=== PATIENT | female | born 1990 | race Hispanic/Latino ===

== ENCOUNTER 2017-08-09 16:14 | Outpatient (CLI) | payer BC ==
[2017-08-09 17:21] LABS: Hemoglobin 13.5 g/dL (12.0-16.0); Mean Corpuscular HGB CONC 35.1 g/dL (32.0-36.0); Mean Corpuscular Hemoglobin 30.8 pg (27.0-31.0); Mean Corpuscular Volume 87.6 fl (81.0-99.0); Mean Platelet Volume 8.6 fL (7.4-10.4); Platelet Count 224 thou/uL (130-400); RBC Distribution Width 11.7 % (11.5-14.5); White Blood Cell (WBC) Count 7.8 thou/uL (4.8-10.8)
== END 2017-08-09 16:15 | disposition home or self-care (01) ==
LOC: LABBT 16:14
PROVIDERS: ATTEND Obstetrics & Gynecology
DX: Z01.812 Encounter for preprocedural laboratory examination (principal); O03.4 Incomplete spontaneous abortion without complication
CPT/HCPCS: 85027; 86850; 86900; 86901

== ENCOUNTER 2017-08-10 10:02 | Day surgery (SDC) | payer BC ==
[2017-08-09 16:29] VITALS: BMI 30.9
--- NOTE | 2017-08-09 18:30 | HP ---
DATE OF PROCEDURE: 08/10/2017 PROCEDURE TO BE PERFORMED: Hysteroscopy with dilation and curettage. PREOPERATIVE DIAGNOSIS: Retained products of conception. HISTORY OF PRESENT ILLNESS: Ms. Amanda Vega is a G5, P3-0-1-3 who presented for a new OB vi sit on 03/29/2017 with ultrasound findings consistent with a blighted ovum. At that time, the patien t had a 4-cm gestational sac with no pole. At that time, the patient was counseled for her man agement options including observational, medical, and surgical management options with the risk and b enefits of each. At that visit, the patient appeared to be in some disbelief about the early abnorma l and requested to repeat her ultrasound in a week. The patient did not return as discusse d until April 26, 2017. When the patient returned, a repeat ultrasound was consistent with the pre vious findings and the patient desired to proceed with medical management with Cytotec. The patient did not have success with the medical management with the Cytotec and was counseled for surgical abiel gement options. The patient was counseled and desired to proceed with a dilation and curettage; grant cielo, the procedure was too costly at [place] [facility]. The patient then reports she went to [facility] in May and had a consultation with them, but did not proceed with D&C. The patient then retur dia again another time to our clinic on 06/11/2017 with a repeat ultrasound showing abnormal appearan ce of the uterine contents. The patient had a beta hCG drawn at that time, which was 58. The patien t reported she would have secondary insurance soon and the delay to treatment continued until now July 2017. I saw the patient last week on August 03 for followup with known retained products of concepti on since March. At that time, the patient had had some light spotting. Her ultrasound confirmed a gain abnormal appearance of the uterine contents. A repeat beta hCG showed hCG that had dropped to a pproximately 5. She had no uterine tenderness or foul-smelling discharge and requested to schedule d ilation and curettage with hysteroscopy at [facility]. The patient has now been scheduled and is set to have the procedure completed tomorrow, 08/10/2017. PAST MEDICAL HISTORY: Obesity. PAST SURGICAL HISTORY: Elective termination. OBSTETRICAL HISTORY: Three previous vaginal deliveries, 1 previous elective termination with D&C and current noted to be abnormal. SOCIAL HISTORY: The patient denies smoking, alcohol, or drug use. 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 She is single. ALLERGIES: She does not have any known allergies. FAMILY HISTORY: Noncontributory. MEDICATIONS: No current medications. REVIEW OF SYSTEMS: Negative except HPI. PHYSICAL EXAMINATION: VITAL SIGNS: Blood pressure 112/74, respirations 16, weight 170 pounds, BMI 32.1. GENERAL: No acute distress, alert, and oriented. LUNGS: Clear to auscultation bilaterally, nonlabored breathing. ABDOMEN: Soft, nontender. Nonpalpable. NEUROLOGIC: Grossly oriented to person, time, and place. SKIN: Grossly normal. ASSESSMENT AND PLAN: Ms. Amanda Vega is a 26-year-old with retained products of conception for a number of months with delay in care due to a combination of psychosocial factors, who is now re martir to proceed with hysteroscopy and D&C for retained products of conception. The patient has tried medical management number of months ago, which was not successful. She has been counseled on her opt ions and she desires to proceed with the procedure as listed above. She understands the risks are to include, but not limited to bleeding, infection, possible need for antibiotics, possible need for fu ture medical and/or surgical management, inability to fully diagnose and treat all conditions at the time of surgery, and inherent risk of anesthesia. The patient's questions have been answered to her satisfaction.
[~2017-08-10 10:02] MED LIST: Dexamethasone 20 MG/5 ML VIAL ONE; Ketorolac Tromethamine 30 MG/ML VIAL ONE; Lidocaine 1% PF 5 ML VIAL ONE; Ondansetron HCl/PF 4 MG/2 ML Vial ONE; PROPOFOL 200 MG/20 ML VIAL ONE; ePHEDrine/0.9% NaCl/PF SYRINGE 50 mg/10 ml ONE
[2017-08-10] MEDS ORDERED: CEFAZOLIN 1 GM VIAL ONE (10:48)
[2017-08-10] MEDS ORDERED: CEFAZOLIN/Water 2 GM/20 ML SYRINGE ONE (10:49)
[2017-08-10] MEDS ORDERED: Midazolam HCl 2 mg/2 ml Vial ONE ×2 (11:25→11:43)
[2017-08-10] MEDS ORDERED: Fentanyl 100 MCG/2 ML VIAL ONE (11:25)
--- NOTE | 2017-08-10 15:17 | OP ---
PROCEDURES PERFORMED: Hysteroscopy, cervical dilation, endometrial curettage and hysteroscopic resec tion of retained products of conception. SURGEON: Martínez Johnson D.O. GARLAND MAKER: None. COMPLICATIONS: None. ANESTHESIA: LMA. ESTIMATED BLOOD LOSS: Less than 10 mL. FINDINGS: 1. Uterus sounds to 8 cm. 2. Hysteroscopic findings with calcified tissue filling the endometrial cavity. PROCEDURE INDICATIONS: Ms. Amanda Vega has had no retained products of conception after abn ormal that was diagnosed in 03/2017. She had a delay to receiving, recommended care for [facility] for combination of psychosocial and financial reasons, but presented today for hysteroscop y, D&C of suspected retained products of conception. PROCEDURE DETAILS: The patient was brought to the OR with IV fluids running. Once she was in the OR , anesthesia was obtained and the patient was placed in low dorsal lithotomy position. The vagina wa s prepped and draped in normal fashion for hysteroscopy. The bladder was drained. Surgeons were scr ubbed in. An operative speculum was placed into the vagina with significant uterine descent with the cervix noted to be near the introitus just beyond the hymenal ring. The operative speculum was franko fitz and a weighted speculum was placed into the vagina and a single-tooth tenaculum was placed on the anterior lip of the cervix. Uterus sounded to approximately 8 cm. Cervix was serially dilated to al low for passage of the hysteroscopy. The cervix was noted to be soft and somewhat dilated with minim al dilation and needed to pass the camera. The hysteroscope was then placed through the cervix into the uterine cavity. The uterine cavity was distended with normal saline with calcified appearing tis candelaria noted to fill the majority of the endometrial cavity. The hysteroscope was able to be passed susannah und the patient's left side of the specimen with the left tubal ostia able to be visualized. The Adam clear incisor was passed through the hysteroscope, but due to the calcified texture of the tissue, I was not able to get significant reduction in the size of the lesion with this instrument. For this r travis, the instrument was removed as well as hysteroscope and the hysteroscope was reassembled with t he larger working channel for the morcellator incisor. The morcellator incisor was used to resect th e products. Again significant calcifications were noted which made it difficult to completely resect the tissue with this instrument. The hysteroscope was removed and a sharp curette was used to resec t the remaining intrauterine contents. After the curettage portion was complete, the hysteroscope wa s replaced into the uterine cavity and the uterus was distended with the products of conception, no l onger identified within the uterine cavity. There were some calcifications near the fundus on the an terior wall of the patient's right side which could not be removed with the incising device hysterosc opically or with the curettage and these were left in situ at this time. After the procedure was com pleted, all instruments were removed. The counts were correct. There was no bleeding from the tenac ulum site. The fluid deficit was approximately said 700 mL with large amount of fluid noted undernea th the drape on the floor. The patient was then cleaned, taken out of lithotomy position. She woke from anesthesia and was transferred to the recovery room in good condition.
== END 2017-08-10 15:55 | disposition home or self-care (01) ==
LOC: SDC 10:02
PROVIDERS: ATTEND Obstetrics & Gynecology
PROC: 10D18ZZ Extraction of Products of Conception, Retained, Via Natural or Artificial Opening Endoscopic (ICD-10-PCS; principal; 2017-08-10)
DX: O03.4 Incomplete spontaneous abortion without complication (principal); E66.9 Obesity, unspecified
CPT/HCPCS: 88305; J0690; J1100; J1885; J2001; J2250; J2405; J2704; J3010

== ENCOUNTER 2018-09-17 08:45 | Inpatient (IN) | payer BC, OTHER ==
[2018-09-17 09:26] VITALS: BMI 31.9
[2018-09-17] MEDS ORDERED: HYDROcodone/Acetaminophen 5/325 mg Tablet PO PRN ×2 (09:52)
[2018-09-17] MEDS ORDERED: Butorphanol Tartrate 1 MG/ML VIAL SLOW IVP PRN (09:52)
[2018-09-17] MEDS ORDERED: NS / Oxytocin 40 units/1000ml 1,000 ML IV PRN (09:52)
[2018-09-17] MEDS ORDERED: hydrALAZINE 20 MG/ML VIAL SLOW IVP PRN ×2 (09:52→09:57)
[2018-09-17] MEDS ORDERED: Ibuprofen 800 MG TAB PO PRN (09:52)
[2018-09-17] MEDS ORDERED: Promethazine HCl 25 MG/ML VIAL IM PRN ×2 (09:52→09:57)
[2018-09-17] MEDS ORDERED: Lidocaine 1% (PF) 30 ML VIAL SC PRN ×2 (09:52→09:57)
[2018-09-17] MEDS ORDERED: Ondansetron PF 4 MG/2 ML Vial IVP PRN ×2 (09:52→09:57)
[2018-09-17] MEDS ORDERED: Lactated Ringer's 1,000 ML IV SCH (10:00)
--- NOTE | 2018-09-17 10:26 | HP ---
TIME OF EVALUATION: Roughly 0950 hours, it is now 1005 hours. LOCATION: Labor and Delivery. This is a patient of Smita Lucas CNM. CHIEF COMPLAINT: Contractions. HISTORY OF PRESENT ILLNESS: This is a 27-year-old, G5, P3, AB1, at 39 weeks and 2 days with an EDC of September 22, 2018, who presents with a complaint of regular contractions every 5 to 7 minutes. Contractions began this morning and then persisted. There was no vaginal bleeding or leakage of fluid. No decrease in movement. No headaches, right upper quadrant change, or visual changes. She denies any other complications. There are also no fevers or other constitutional symptoms. REVIEW OF SYSTEMS: Complete review of systems was completed and is otherwise negative unless specified in the HPI. PAST OB HISTORY: She is a G5, P3, with 1 spontaneous loss. All deliveries were vaginal. PAST SURGERY HISTORY: Negative. PAST SURGICAL HISTORY: Negative. ALLERGIES: ALLERGIES ARE TO LATEX AND NATURAL RUBBER. SOCIAL HISTORY: Negative for alcohol, tobacco, or illicit substances. FAMILY HISTORY: Noncontributory. PHYSICAL EXAMINATION: VITAL SIGNS: Blood pressure is 133/79, she is not tachycardic and she is afebrile. Her BMI is 31.9, according to the [employer] conversion. GENERAL: She is in no acute distress. ABDOMEN: Gravid and nontender. Size appropriate. Estimated weight per the nursing staff about 6-1/2 pounds. CERVICAL: 5 cm dilation, 60% effacement, -2 station. Bag of water is intact. monitoring; her heart tones are in the 140s to 150s with moderate variability and Category I tracing. Contractions are frequent about every 5 to 6 minutes on tocodynamometer. LABORATORY DATA: Her GBS swab is negative. ASSESSMENT: This is a 39.2-week , and a multipara patient, who is in early labor approaching active phase (approaching 6 cm). GBS negative. PLAN: 1. Admit to Labor and Delivery for symptomatic pain control. 2. Await spontaneous progress. 3. Pitocin augmentation if needed. 4. No GBS prophylaxis as she is culture negative. 5. No evidence of hypertension. 6. No evidence of compromise on monitor. 7. Serina Lucas notification by Hyglos Job ID: [id number] [facility]
[2018-09-17 10:27] LABS: Hemoglobin 12.9 g/dL (12.0-16.0); Mean Corpuscular HGB CONC 35.6 g/dL (32.0-36.0); Mean Corpuscular Volume 95.5 fL (78.0-98.0); Mean Platelet Volume 9.6 fL (7.4-10.4); Platelet Count 136 thou/uL (130-400); RBC Distribution Width 12.6 % (11.5-14.5)
[2018-09-17 10:59] LABS: Syphilis Antibody Nonreactive (Nonreactive); Syphilis Antibody Index 0.03 S/CO (<1.00 Non-Reactive)
[2018-09-17 11:00] LABS: HBSAg Index 0.27 S/CO (0-0.99); Hep B Surf Ag Non-Reactive S/CO (NonReactive)
[2018-09-17 11:11] LABS: HIV (1/2) Antibody/Antigen Non-Reactive (NonReactive); HIV 1/2 INDEX 0.16 S/CO (<1.00)
[2018-09-17] MEDS ORDERED: NS w/ Oxytocin 10 units 500 ML ONE (12:28)
[2018-09-17] MEDS: Lactated Ringer's 1,000 ML IV SCH ×2 (12:33→23:32)
[2018-09-17] MEDS ORDERED: NS w/ Oxytocin 10 units 500 ML IV SCH (12:45)
[2018-09-17] MEDS ORDERED: Acetaminophen 325 MG TAB PO PRN (16:48)
[2018-09-17] MEDS ORDERED: Lidocaine 1% (PF) 30 ML VIAL ONE (17:08)
--- NOTE | 2018-09-17 17:09 | PDOC.EVN ---
Event Note - Event Note Event Note: L&D: @1700 Asked by bryant Lucas to perform AROM for IUPC As I was putting on gloves, patient spontaneously ruptured her membranes...clear. My exam: /1. I placed an IUPC without difficulty. FHTs wnl after SROM/ I notified Mo Lucas of status.
[2018-09-17] MEDS: NS / Oxytocin 40 units/1000ml 1,000 ML IV PRN ×2 (21:26→23:29)
--- NOTE | 2018-09-17 21:48 | PDOC.LDHP ---
Labor and Delivery H&P Chief complaint: contractions HPI: Here for contractions. Denies VB, LOF. Reports + FM Current gestational age (weeks): 39 Due date: 09/22/18 Dating criteria: first trimester ultrasound Grav: 5 Para: 3 Abnormal US findings: No Past Medical History: Eczema. Current medications: pre- vitamins, other (topical steriod) Previous surgical history: dilation and curettage Allergies/Adverse Reactions: Allergies Allergy/AdvReac Type Severity Reaction Status Date / Time Latex, Natural Rubber Allergy Rash Verified 09/17/18 09:29 - Physical Exam Vital signs reviewed and normal: yes General: breathing through contractions Heart: RRR Lungs: nonlabored breathing Abdomen: gravid FHT: category 1 - Vaginal Exam cm dilated: 4 Effacement: 75% Station: -2 - OB Labs Blood type: O RH: positive Antibody Screen: negative HIV: negative RPR: negative HEPSAg: negative 1 hour GCT: negative GBS: negative Urine drug screen: negative Rubella: immune - Assessment L&D Assessment: term patient in labor - Plan Plan: admit to L&D
--- NOTE | 2018-09-17 21:49 | PDOC.OPDEL ---
OB Operative/Delivery Note Delivery Dr/Surgeon: Liz Lucas Pre-Delivery Diagnosis: active labor Procedure/Post Delivery Dx: spontaneous vaginal delivery Weeks gestation: 39 Anesthesia: epidural - Findings A Sex: female Weight: 8 lb 1 oz - 1 min: 8 - 5 min: 9 - Additional Findings/Plan Repaired Obstetrical Laceration: 1st degree Estimated blood loss: 32 ml QBL Compilations/Other Findings: Edematous anterior cervix Grade [address] Stapleton to bedside to confirm findings. Post delivery plan: routine recovery
[2018-09-18] MEDS ORDERED: Benzocaine-Menthol 82.5 ML CAN TOP PRN (00:15)
[2018-09-18] MEDS ORDERED: Methylergonovine 0.2 MG/ML VIAL IM PRN (00:15)
[2018-09-18] MEDS ORDERED: Bisacodyl 10 MG SUPP PR PRN (00:15)
[2018-09-18] MEDS ORDERED: Milk Of Magnesia 30 ML UDCUP PO PRN (00:15)
[2018-09-18] MEDS ORDERED: NS / Oxytocin 40 units/1000ml 1,000 ML IV SCH (00:15)
[2018-09-18] MEDS ORDERED: HYDROcodone/Acetaminophen 5/325 mg Tablet PO PRN (00:15)
[2018-09-18] MEDS ORDERED: diphenhydrAMINE 25 MG CAP PO PRN (00:15)
[2018-09-18] MEDS ORDERED: hydrALAZINE 20 MG/ML VIAL SLOW IVP PRN (00:15)
[2018-09-18] MEDS: Ibuprofen 800 MG TAB PO SCH ×3 (05:16→21:53)
--- NOTE | 2018-09-18 06:54 | PDOC.PP ---
Post Progress Note Post Day #: 1 Subjective: doing well, delivered at 2100 last PM...will be PPD1 this pm late PO intake tolerated: yes Flatus: yes Ambulation: yes Vital Signs (12 hours) Temp Pulse Resp BP Pulse Ox 09/18/18 05:00 98.5 F 69 20 106/58 L 09/18/18 03:00 98.5 F 65 18 112/59 L 09/18/18 02:00 98.4 F 81 18 111/55 L 09/18/18 00:20 98.2 F 59 L 18 121/65 98 Weight Weight 169 lb - Physical Examination General: NAD Cardiovascular: no m/r/g Respiratory: clear to auscultation bilaterally Abdominal: + bowel sounds, lochia, no distention, appropriately TTP Extremities: negative homans (B) Neurological: no gross focal deficits Psychiatric: A&Ox3, normal affect Result Diagrams: 09/17/18 10:15 Additional Labs: Post Labs Blood Type O POSITIVE 09/17/18 10:15 Hep Bs Antigen Non-Reactive S/CO (NonReactive) 09/17/18 10:15 (1) Vaginal delivery Code(s): O80 - ENCOUNTER FOR FULL-TERM UNCOMPLICATED DELIVERY Status: Acute - Assessment/Plan PPD1 this PM, doing well...likely home PPD2 tomorrow AM
--- NOTE | 2018-09-18 06:57 | PDOC.PP ---
Post Progress Note Post Day #: 1-2 Subjective: Doing well, wants to stay until tomorrow as delivered close to Midnight PO intake tolerated: yes Flatus: yes Ambulation: yes Vital Signs (12 hours) Temp Pulse Resp BP Pulse Ox 09/18/18 05:00 98.5 F 69 20 106/58 L 09/18/18 03:00 98.5 F 65 18 112/59 L 09/18/18 02:00 98.4 F 81 18 111/55 L 09/18/18 00:20 98.2 F 59 L 18 121/65 98 Weight Weight 169 lb - Physical Examination General: NAD Cardiovascular: no m/r/g Respiratory: clear to auscultation bilaterally Abdominal: + bowel sounds, lochia, no distention, appropriately TTP Extremities: negative homans (B) Neurological: no gross focal deficits Psychiatric: A&Ox3, normal affect Result Diagrams: 09/17/18 10:15 Additional Labs: Post Labs Blood Type O POSITIVE 09/17/18 10:15 Hep Bs Antigen Non-Reactive S/CO (NonReactive) 09/17/18 10:15 (1) Vaginal delivery Code(s): O80 - ENCOUNTER FOR FULL-TERM UNCOMPLICATED DELIVERY Status: Acute - Assessment/Plan S/P close to midnight on 09/16...will be PPD2 this pm late. We will hold DC home until tomorrow at her request and to continue to monitor
[2018-09-18] MEDS: Ferrous Sulfate 325 MG TAB PO SCH ×2 (07:18→17:12)
[2018-09-18] MEDS ORDERED: IRON PO SCH (09:00)
[2018-09-18] MEDS ORDERED: DHA PO SCH (09:00)
[2018-09-18] MEDS ORDERED: Measles/Mumps/Rubella 10 MCG/0.5 ML VIAL SC ONE (09:00)
[2018-09-18] MEDS ORDERED: FOLIC AC PO SCH (09:00)
[2018-09-18] MEDS ORDERED: Adacel (T-DAP) 0.5 ML SYRINGE IM ONE (09:00)
[2018-09-18] MEDS ORDERED: [UNRECOGNIZED DRUG - OTHER] PO SCH (09:00)
[2018-09-18] MEDS ORDERED: PRENATAL PO SCH (09:00)
[2018-09-18] MEDS: Docusate Calcium (SURFAK) 240 MG CAP PO SCH ×2 (09:10→21:53)
[2018-09-18] MEDS: Prenatal Vitamin 1 TAB PO SCH (09:10)
[2018-09-18] MEDS: HYDROcodone/Acetaminophen 5/325 mg Tablet PO PRN (19:45)
[2018-09-19] MEDS: Ibuprofen 800 MG TAB PO SCH (05:46)
[2018-09-19] MEDS: HYDROcodone/Acetaminophen 5/325 mg Tablet PO PRN (05:56)
[2018-09-19 06:01] VITALS: TEMP 97.9
[2018-09-19] MEDS: Ferrous Sulfate 325 MG TAB PO SCH (09:04)
[2018-09-19] MEDS: Prenatal Vitamin 1 TAB PO SCH (09:19)
[2018-09-19] MEDS: Docusate Calcium (SURFAK) 240 MG CAP PO SCH (09:20)
[2018-09-19 10:53] VITALS: BP 115/76
== END 2018-09-19 12:45 | disposition home or self-care (01) | DRG 807 ==
LOC: L&D/OP 08:45 → L&D 09:57 → 3SW 09-18 00:59
PROVIDERS: ADMIT Student in an Organized Health Care Education/Training Program; ATTEND Student in an Organized Health Care Education/Training Program
PROC: 10E0XZZ Delivery of Products of Conception, External Approach (ICD-10-PCS; principal; 2018-09-15)
PROC: 0HQ9XZZ Repair Perineum Skin, External Approach (ICD-10-PCS; 2018-09-15)
DX: O34.43 Maternal care for other abnormalities of cervix, third trimester (principal); Z37.0 Single live birth; O70.0 First degree perineal laceration during delivery; Z3A.39 39 weeks gestation of pregnancy
CPT/HCPCS: 36415; 85027; 86780; 86850; 86900; 86901; 87340; 87389; 99285; J2001; J2405; J2590